=== PATIENT | male | born 1980 | race Caucasian/White ===

== ENCOUNTER → 2019-03-18 | Emergency (ER) | payer SELFPAY ==
[2019-03-18] MEDS: predniSONE 20 MG TAB PO (09:41)
[2019-03-18] MEDS: IPRATROPIUM (NEB) 0.5 MG/2.5 ML AMP NEB (09:59)
[2019-03-18] MEDS: ALBUTEROL 0.083% (NEB) 2.5 MG/3 ML AMP NEB (09:59)
== END | disposition home or self-care (01) ==
LOC: FTE 08:51
DX: J45.901 Unspecified asthma with (acute) exacerbation (principal); Z87.891 Personal history of nicotine dependence
CPT/HCPCS: 94664; 99283-25